=== PATIENT | female | born 1995 | race Caucasian/White ===

== ENCOUNTER 2017-08-14 22:45 | Emergency (ER) | payer SELFPAY ==
[2017-08-15 00:28] LABS: APPEARANCE,URINE CLEAR; BILIRUBIN,URINE NEGATIVE (NEGATIVE); GLUCOSE, URINE NEGATIVE (NEGATIVE); KETONES,URINE NEGATIVE (NEGATIVE); LEUKOCYTE ESTERASE,URINE TRACE (NEGATIVE); NITRITE,URINE NEGATIVE (NEGATIVE); PROTEIN,URINE NEGATIVE (NEGATIVE); URINE SPECIFIC GRAVITY 1.028; UROBILINOGEN,URINE NEGATIVE mg/dL (<2.0)
--- NOTE | 2017-08-15 00:48 | ER Document Report ---
ED GI/ - General Chief Complaint: Lower Abdominal Pain Stated Complaint: ABDOMINAL PAIN Time Seen by Provider: 08/14/17 23:43 Mode of Arrival: Ambulatory Information source: Patient TRAVEL OUTSIDE OF THE [place] IN LAST 30 DAYS: No - HPI Patient complains to provider of: Pelvic pain, , Vaginal bleeding Onset: Just prior to arrival Timing/Duration: Sudden Quality of pain: Achy, Cramping Severity at maximum: Mild Severity in ED: None Location: Pelvis Vaginal bleeding (Compared to normal period): Spotting Associated symptoms: None Exacerbated by: Denies Relieved by: Denies Similar symptoms previously: No Recently seen / treated by doctor: Yes Notes: 08/15/17 00:47 Patient is a 22-year-old female presenting to the emergency room today complaining of lower abdominal pain with vaginal spotting and possible anxiety attack, she reports being approximately 3 months , this is her first , she states was confirmed by a 4 or 5 home tests, and then by her primary care provider at [facility] where she had an transvaginal ultrasound 3 weeks ago that showed her to be 3-4 weeks , prior to today patient's last menstrual period was approximately 3 months ago and she has had no other bleeding or cramping since finding out she was - Related Data Allergies/Adverse Reactions: No Known Allergies Allergy (Unverified 08/14/17 22:57) Home Medications: Current Home Medications Ferrous Sulfate [Iron] 325 mg PO BID 08/15/17 [History] Multivitamin [Multivitamins] 1 each PO DAILY 08/15/17 [History] Past Medical History - General Information source: Patient - Social History Smoking Status: Never Smoker Family History: Reviewed & Not Pertinent Patient has suicidal ideation: No Patient has homicidal ideation: No Renal/ Medical History: Denies: Hx Peritoneal Dialysis Review of Systems - Review of Systems Constitutional: No symptoms reported EENT: No symptoms reported Cardiovascular: No symptoms reported Respiratory: No symptoms reported Gastrointestinal: No symptoms reported Genitourinary: No symptoms reported Female Genitourinary: See HPI Musculoskeletal: No symptoms reported Skin: No symptoms reported Hematologic/Lymphatic: No symptoms reported Neurological/Psychological: No symptoms reported -: Yes All other systems reviewed and negative Physical Exam - Vital signs Vitals: Temp Pulse Resp BP Pulse Ox 98.5 F 99 20 133/78 H 99 08/14/17 22:55 08/14/17 22:55 08/14/17 22:55 08/14/17 22:55 08/14/17 22:55 Interpretation: Normal - General General appearance: Appears well, Alert - HEENT Head: Normocephalic, Atraumatic Eyes: Normal Pupils: PERRL - Respiratory Respiratory status: No respiratory distress Chest status: Nontender Breath sounds: Normal Chest palpation: Normal - Cardiovascular Rhythm: Regular Heart sounds: Normal auscultation Murmur: No - Abdominal Inspection: Obese Distension: No distension Bowel sounds: Normal Tenderness: Tender - Suprapubic Organomegaly: No organomegaly - Back Back: Normal, Nontender - Extremities General upper extremity: Normal inspection, Nontender, Normal color, Normal ROM , Normal temperature General lower extremity: Normal inspection, Nontender, Normal color, Normal ROM , Normal temperature, Normal weight bearing. No: José Miguel's sign - Neurological Neuro grossly intact: Yes Cognition: Normal Orientation: AAOx4 Lemuel Coma Scale Eye Opening: Spontaneous Lemuel Coma Scale Verbal: Oriented Lemuel Coma Scale Motor: Obeys Commands Lemuel Coma Scale Total: 15 Speech: Normal Motor strength normal: LUE, RUE, LLE, RLE Sensory: Normal - Psychological Associated symptoms: Normal affect, Normal mood - Skin Skin Temperature: Warm Skin Moisture: Dry Skin Color: Normal Course - Re-evaluation Re-evalutation: 08/15/17 02:09 Patient serum test is negative, she was given a copy of this report for follow-up and advised to follow back up with her primary care provider who performed a recent ultrasound and told her that she was 3-4 weeks , she was advised to take Tylenol or Motrin as needed for pain, follow-up with her primary care provider or return if symptoms worsen, patient acknowledges understanding and agreement with this plan - Vital Signs Vital signs: Temp Pulse Resp BP Pulse Ox 98.5 F 99 20 133/78 H 99 08/14/17 22:55 08/14/17 22:55 08/14/17 22:55 08/14/17 22:55 08/14/17 22:55 - Laboratory Result Diagrams: 08/15/17 00:55 08/15/17 00:55 Laboratory results interpreted by me: 08/14/17 08/15/17 08/15/17 23:51 00:55 00:55 WBC 11.8 H Hgb 11.4 L MCV 71 L MCH 22.5 L MCHC 31.7 L RDW 16.6 H Sodium 145.3 H Chloride 108 H Ur Leukocyte Esterase TRACE H Discharge - Discharge Clinical Impression: Abdominal pain Qualifiers: Abdominal location: generalized Qualified Code(s): R10.84 - Generalized abdominal pain Condition: Stable Disposition: HOME, SELF-CARE Instructions: Abdominal Pain ([facility]) Additional Instructions: Follow up with your primary care provider in one to 2 days. Return to the emergency room immediately if symptoms worsen or any additional concerns.
[2017-08-15 01:07] LABS: ABSOLUTE BASOPHILS # (AUTO) 0.1 10^3/uL (0.0-0.2); ABSOLUTE EOSINOPHILS # (AUTO) 0.2 10^3/uL (0.0-0.6); ABSOLUTE LYMPHOCYTES (AUTO) 3.4 10^3/uL (0.5-4.7); ABSOLUTE MONOCYTES (AUTO) 0.7 10^3/uL (0.1-1.4); ABSOLUTE NEUT (AUTO) 7.4 10^3/uL (1.7-8.2); BASOPHILS % (AUTO) 0.8 % (0-2); EOSINOPHILS % (AUTO) 1.4 % (0-6); HEMOGLOBIN 11.4 g/dL (12.0-15.5); HGB HCT DIFFERENCE -1.8; LYMPHOCYTES % (AUTO) 28.7 % (13-45); MEAN CORPUSCULAR HEMOGLOBIN 22.5 pg (27.0-33.4); MEAN CORPUSCULAR HGB CONC 31.7 g/dL (32.0-36.0); MEAN CORPUSCULAR VOLUME 71 fl (80-97); MONOCYTES % (AUTO) 6.3 % (3-13); RED BLOOD COUNT 5.08 10^6/uL (3.72-5.28); RED CELL DISTRIBUTION WIDTH 16.6 % (11.5-14.0); SEGMENTED NEUTROPHILS % (AUTO) 62.8 % (42-78); WHITE BLOOD COUNT 11.8 10^3/uL (4.0-10.5)
[2017-08-15 01:49] LABS: ALANINE AMINOTRANSFERASE 22 U/L (9-52); ALBUMIN 4.6 g/dL (3.5-5.0); ALKALINE PHOSPHATASE 61 U/L (38-126); ANION GAP 14 (5-19); ASPARTATE AMINO TRANSFERASE 27 U/L (14-36); BILIRUBIN,DIRECT 0.3 mg/dL (0.0-0.4); BILIRUBIN,TOTAL 0.3 mg/dL (0.2-1.3); BLOOD UREA NITROGEN 16 mg/dL (7-20); CALCIUM 9.3 mg/dL (8.4-10.2); CARBON DIOXIDE 23 mmol/L (22-30); CHLORIDE 108 mmol/L (98-107); CREATININE RESULT 0.87 mg/dL (0.52-1.25); GLUCOSE 106 mg/dL (75-110); POTASSIUM 4.1 mmol/L (3.6-5.0); SODIUM 145.3 mmol/L (137-145); TOTAL PROTEIN 7.9 g/dL (6.3-8.2)
[2017-08-15 02:04] LABS: LIPASE 112.8 U/L (23-300)
[2017-08-15 02:12] VITALS: BP 128/82
== END 2017-08-15 02:11 | disposition home or self-care (01) ==
LOC: ER 22:45
DX: R10.84 Generalized abdominal pain (principal); R10.30 Lower abdominal pain, unspecified; R10.2 Pelvic and perineal pain; N93.9 Abnormal uterine and vaginal bleeding, unspecified; Z79.899 Other long term (current) drug therapy
CPT/HCPCS: 36415; 80053; 81001; 81025; 83690; 84702; 85025; 99284

== ENCOUNTER 2017-09-26 20:21 | Emergency (ER) | payer SELFPAY ==
[2017-09-26 20:33] VITALS: BP 127/75
[2017-09-26 21:37] LABS: ABSOLUTE BASOPHILS # (AUTO) 0.1 10^3/uL (0.0-0.2); ABSOLUTE EOSINOPHILS # (AUTO) 0.2 10^3/uL (0.0-0.6); ABSOLUTE LYMPHOCYTES (AUTO) 4.3 10^3/uL (0.5-4.7); ABSOLUTE NEUT (AUTO) 7.4 10^3/uL (1.7-8.2); BASOPHILS % (AUTO) 0.5 % (0-2); EOSINOPHILS % (AUTO) 1.6 % (0-6); HEMATOCRIT 35.1 % (36.0-47.0); HEMOGLOBIN 10.9 g/dL (12.0-15.5); HGB HCT DIFFERENCE -2.4; LYMPHOCYTES % (AUTO) 32.8 % (13-45); MEAN CORPUSCULAR HEMOGLOBIN 22.7 pg (27.0-33.4); MEAN CORPUSCULAR HGB CONC 31.1 g/dL (32.0-36.0); MEAN CORPUSCULAR VOLUME 73 fl (80-97); MONOCYTES % (AUTO) 7.7 % (3-13); RED BLOOD COUNT 4.82 10^6/uL (3.72-5.28); RED CELL DISTRIBUTION WIDTH 17.1 % (11.5-14.0); SEGMENTED NEUTROPHILS % (AUTO) 57.4 % (42-78)
[2017-09-26 21:52] LABS: APPEARANCE,URINE CLEAR; BILIRUBIN,URINE NEGATIVE (NEGATIVE); GLUCOSE, URINE NEGATIVE (NEGATIVE); KETONES,URINE NEGATIVE (NEGATIVE); LEUKOCYTE ESTERASE,URINE NEGATIVE (NEGATIVE); NITRITE,URINE NEGATIVE (NEGATIVE); PROTEIN,URINE NEGATIVE (NEGATIVE); UROBILINOGEN,URINE NEGATIVE mg/dL (<2.0)
[2017-09-26 21:55] LABS: ALANINE AMINOTRANSFERASE 22 U/L (9-52); ALBUMIN 4.3 g/dL (3.5-5.0); ALKALINE PHOSPHATASE 46 U/L (38-126); ANION GAP 14 (5-19); ASPARTATE AMINO TRANSFERASE 21 U/L (14-36); BILIRUBIN,DIRECT 0.2 mg/dL (0.0-0.4); BILIRUBIN,TOTAL 0.2 mg/dL (0.2-1.3); BLOOD UREA NITROGEN 16 mg/dL (7-20); CALCIUM 9.9 mg/dL (8.4-10.2); CARBON DIOXIDE 24 mmol/L (22-30); CHLORIDE 105 mmol/L (98-107); CREATININE RESULT 0.91 mg/dL (0.52-1.25); GLUCOSE 81 mg/dL (75-110); POTASSIUM 4.2 mmol/L (3.6-5.0); SODIUM 142.8 mmol/L (137-145); TOTAL PROTEIN 7.2 g/dL (6.3-8.2)
--- NOTE | 2017-09-27 | ER Document Report ---
ED General - General Chief Complaint: Abdominal Pain Stated Complaint: FEVER,ABDOMINAL PAIN,HEADACHE Time Seen by Provider: 09/26/17 22:40 Notes: Patient is a 22-year-old female presents with complaint of 1 week of some right upper quadrant abdominal pain with some nausea. No objective fevers at home. Some chills. No vomiting. Pain seems to be a little bit worse with eating. No diarrhea. No sore throat. No nasal congestion or cough. No history of abdominal surgeries. No dysuria. No other complaints at this time. TRAVEL OUTSIDE OF THE [place] IN LAST 30 DAYS: No - Related Data Allergies/Adverse Reactions: No Known Allergies Allergy (Verified 09/26/17 21:03) Past Medical History - Social History Smoking Status: Unknown if Ever Smoked Frequency of alcohol use: None Drug Abuse: None Family History: Reviewed & Not Pertinent Patient has suicidal ideation: No Patient has homicidal ideation: No Renal/ Medical History: Denies: Hx Peritoneal Dialysis Review of Systems - Review of Systems Notes: My Normal Review Basic REVIEW OF SYSTEMS: CONSTITUTIONAL : Denies fever, chills, or sweats. Denies recent illness. EENT: Denies eye, ear, throat, or mouth pain or symptoms. Denies nasal or sinus congestion. RESPIRATORY: Denies cough, cold, or chest congestion. Denies shortness of breath, difficulty breathing, or wheezing. GASTROINTESTINAL: Right upper quadrant abdominal pain with some nausea. GENITOURINARY: Denies difficulty urinating, painful urination, burning, frequency, or blood in urine. FEMALE GENITOURINARY: Denies vaginal bleeding, abnormal or irregular periods. MUSCULOSKELETAL: Denies neck or back pain or joint pain or swelling. SKIN: Denies rash or skin lesions. NEUROLOGICAL: Denies altered mental status or loss of consciousness. Denies headache. Denies weakness or paralysis or loss of use of either side. Denies problems with gait or speech. Denies sensory or motor loss. ALL OTHER SYSTEMS REVIEWED AND NEGATIVE. Physical Exam - Vital signs Vitals: Temp Pulse Resp BP Pulse Ox 98.6 F 92 18 127/75 H 99 09/26/17 20:32 09/26/17 20:32 09/26/17 20:32 09/26/17 20:32 09/26/17 20:32 - Notes Notes: General Appearance: Well nourished, alert, cooperative, no acute distress, no obvious discomfort. Well appearing. Vitals: reviewed, See vital signs table. Head: no swelling or tenderness to the head Eyes: PERRL, EOMI, Conjuctiva clear Mouth: No decreasd moisture Lungs: No wheezing, No rales, No rhonci, No accessory muscle use, good air exchange bilaterally. Heart: Normal rate, Regular rythm, No murmur, no rub Abdomen: Normal BS, soft, No rigidity, no reproducible abdominal tenderness palpation, No guarding, no rebound, Extremities: strength 5/5 in all extremities, good pulses in all extremities, no swelling or tenderness in the extremities, no edema. Skin: warm, dry, appropriate color, no rash Neuro: speech clear, oriented x 3, normal affect, responds appropriately to questions. Course - Re-evaluation Re-evalutation: 09/27/17 00:09 Patient is a setback this time. The nurse informed her that she was leaving does not want away for the ultrasound. I went and talked to them and informed her that with ultrasound cannot fully rule out stones. Told at this time I do not suspect infection or gallbladder however she could always get worse if she goes home without having ultrasound performed. She understands this. Her boyfriend is at bedside and says the only reason why she really came to days because he asked her to because at home she felt hot to them. Again the never checked her temp. She continues to deny any pain at this time or any vomiting. She says she was follow-up with her doctor will have an outpatient ultrasound performed. I informed her that she is more welcome to return to ER anytime for reevaluation or ultrasound here. I encouraged her return to ER immediately if she has recurrence of pain, vomiting, or any fevers. I informed her to avoid all fatty foods fried foods or acidic foods. I do not at all suspect appendicitis as the shunt has no pain to palpation of her abdomen. Dictation of this chart was performed using voice recognition software; therefore, there may be some unintended grammatical errors. - Vital Signs Vital signs: Temp Pulse Resp BP Pulse Ox 98.6 F 92 18 127/75 H 99 09/26/17 20:32 09/26/17 20:32 09/26/17 20:32 09/26/17 20:32 09/26/17 20:32 - Laboratory Result Diagrams: 09/26/17 21:27 09/26/17 21:27 Laboratory results interpreted by me: 09/26/17 21:27 WBC 13.0 H Hgb 10.9 L Hct 35.1 L MCV 73 L MCH 22.7 L MCHC 31.1 L RDW 17.1 H Discharge - Discharge Clinical Impression: Abdominal pain Qualifiers: Abdominal location: right upper quadrant Qualified Code(s): R10.11 - Right upper quadrant pain Condition: Good Disposition: HOME, SELF-CARE Additional Instructions: You eventually need an ultrasound of her gallbladder to make sure that her gallbladder does not have stones is not irritated. Your currently do not have a fever. Your white blood cell count is just minimally elevated. Your liver enzymes are normal. We respect her decision to want to leave for having ultrasound performed. As discussed with you. Please have a low threshold to return to the ER if you have fevers, severe pain, vomiting, or feel unwell. Please follow up with your doctor and have them arrange for an ultrasound of your gallbladder. Avoid fatty foods, spicy foods, and fried foods.
== END 2017-09-26 23:55 | disposition home or self-care (01) ==
LOC: ER 20:21
DX: R10.11 Right upper quadrant pain (principal); R50.9 Fever, unspecified; R51 Headache; R11.0 Nausea
CPT/HCPCS: 36415; 80053; 81001; 81025; 83690; 85025; 99284

== ENCOUNTER 2018-01-12 12:37 | Emergency (ER) | payer SELFPAY ==
--- NOTE | 2018-01-12 13:33 | ER Document Report ---
ED Medical Screen (RME) - General Chief Complaint: Abdominal Pain Stated Complaint: ABDOMINAL PAIN Time Seen by Provider: 01/12/18 13:23 Notes: 22-year-old female patient comes emergency room to get work note to justify her not showing up to work several times. She states she gets abdominal pain due to her ulcers. She states "I have stomach ulcers". When asked how these were diagnosed she said she was seen in [facility] for about 30 minutes and an ultrasound was done and they told her she had ulcers. This was when she was 19 years old. She has never had an upper GI study or endoscopy. She takes ibuprofen for the pain and it helps. She states Tums did not help. Sometimes the pain is in her chest. She states her last menstrual period was 12/07/2017, she is normally regular. When asked if she could be she responded "I hope not". She was seen here in August claiming to be 3 months , had a negative hCG at that time. I have greeted and performed a rapid initial assessment of this patient. A comprehensive ED assessment and evaluation of the patient, analysis of test results and completion of the medical decision making process will be conducted by additional ED providers. TRAVEL OUTSIDE OF THE [place] IN LAST 30 DAYS: No - Related Data Allergies/Adverse Reactions: No Known Allergies Allergy (Verified 01/12/18 12:38) Past Medical History Renal/ Medical History: Denies: Hx Peritoneal Dialysis Physical Exam - Vital signs Vitals: Temp Pulse Resp BP Pulse Ox 98.5 F 91 14 131/77 H 99 01/12/18 12:43 01/12/18 12:43 01/12/18 12:43 01/12/18 12:43 01/12/18 12:43 Course - Vital Signs Vital signs: Temp Pulse Resp BP Pulse Ox 98.5 F 91 14 131/77 H 99 01/12/18 12:43 01/12/18 12:43 01/12/18 12:43 01/12/18 12:43 01/12/18 12:43
--- NOTE | 2018-01-12 14:26 | ER Document Report ---
ED GI/ - General Chief Complaint: Abdominal Pain Stated Complaint: ABDOMINAL PAIN Time Seen by Provider: 01/12/18 13:23 Mode of Arrival: Ambulatory Information source: Patient Notes: 22-year-old female presented to ED for complaint of abdominal pain. She states she was told long time ago that she had ulcers has never had an endoscopy. She states that her bowels told her she had to come and get checked out if she was not going to be able to work due to pain in her abdomen. She denies any nausea or vomiting she states she just has lower abdominal pain. TRAVEL OUTSIDE OF THE [place] IN LAST 30 DAYS: No - HPI Patient complains to provider of: Abdominal pain - Lower abdominal pain Onset: Other - Several days Timing/Duration: Intermittent Quality of pain: Achy Severity at maximum: Moderate Severity in ED: Mild Pain Level: 2 Location: Pelvis Vaginal bleeding (Compared to normal period): None LMP: 12/08/2017 Associated symptoms: denies: Constipation, Diarrhea, Nausea, Urinary hesitancy, Urinary frequency, Urinary urgency, Vaginal discharge, Vomiting Exacerbated by: Movement, Walking Relieved by: Denies Similar symptoms previously: Yes Recently seen / treated by doctor: No - Related Data Allergies/Adverse Reactions: No Known Allergies Allergy (Verified 01/12/18 12:38) Past Medical History - General Information source: Patient - Social History Smoking Status: Never Smoker Cigarette use (# per day): No Chew tobacco use (# tins/day): No Smoking Education Provided: No Frequency of alcohol use: None Drug Abuse: None Lives with: Spouse/Significant other Family History: Reviewed & Not Pertinent Patient has suicidal ideation: No Patient has homicidal ideation: No - Medical History Medical History: Other - Anemia - Past Medical History Cardiac Medical History: Reports: None Pulmonary Medical History: Reports: None EENT Medical History: Reports: None Neurological Medical History: Reports: None Endocrine Medical History: Reports: None Renal/ Medical History: Reports: None Malignancy Medical History: Reports: None GI Medical History: Reports: Hx Gastritis, Hx Gastroesophageal Reflux Disease, Hx Ulcer Musculoskeltal Medical History: Reports None Skin Medical History: Reports None Psychiatric Medical History: Reports: Hx Depression Traumatic Medical History: Reports: None Infectious Medical History: Reports: None Past Surgical History: Reports: Hx Oral Surgery - [place] teeth Review of Systems - Review of Systems Constitutional: No symptoms reported EENT: No symptoms reported Cardiovascular: No symptoms reported Respiratory: No symptoms reported Gastrointestinal: Abdominal pain - Lower abdominal/pelvic pain Genitourinary: No symptoms reported Female Genitourinary: No symptoms reported Musculoskeletal: No symptoms reported Skin: No symptoms reported Hematologic/Lymphatic: No symptoms reported Neurological/Psychological: No symptoms reported -: Yes All other systems reviewed and negative Physical Exam - Vital signs Vitals: Temp Pulse Resp BP Pulse Ox 98.5 F 91 14 131/77 H 99 01/12/18 12:43 01/12/18 12:43 01/12/18 12:43 01/12/18 12:43 01/12/18 12:43 Interpretation: Normal - General General appearance: Appears well, Alert - HEENT Head: Normocephalic, Atraumatic Eyes: Normal Pupils: PERRL - Respiratory Respiratory status: No respiratory distress Chest status: Nontender Breath sounds: Normal Chest palpation: Normal - Cardiovascular Rhythm: Regular Heart sounds: Normal auscultation Murmur: No - Abdominal Inspection: Normal Distension: No distension Bowel sounds: Normal Tenderness: Tender - Lower abdominal/pelvic pain Organomegaly: No organomegaly - Back Back: Normal, Nontender - Extremities General upper extremity: Normal inspection, Nontender, Normal color, Normal ROM , Normal temperature General lower extremity: Normal inspection, Nontender, Normal color, Normal ROM , Normal temperature, Normal weight bearing. No: José Miguel's sign - Neurological Neuro grossly intact: Yes Cognition: Normal Orientation: AAOx4 Lemuel Coma Scale Eye Opening: Spontaneous Marion Coma Scale Verbal: Oriented Lemuel Coma Scale Motor: Obeys Commands Lemuel Coma Scale Total: 15 Speech: Normal Motor strength normal: LUE, RUE, LLE, RLE Sensory: Normal - Psychological Associated symptoms: Normal affect, Normal mood - Skin Skin Temperature: Warm Skin Moisture: Dry Skin Color: Normal Course - Re-evaluation Re-evalutation: 01/13/18 02:22 Patient was presented to ED for lower abdominal pain. No fever, nausea, vomiting or diarrhea. Patient has a history of ovarian cyst. Patient denied any vaginal discharge or vaginal pain. Patient states she came in because her boss that she had to get checked out and on for her to come back to work. There is no reasons for doing radiological test when she has no fever, no nausea , no vomiting, diarrhea, urinary frequency, urgency, or retention, and no vaginal discharge. Patient was instructed on use of ibuprofen and instructed to follow-up with her primary doctor and to take her lab work with her to her doctor. - Vital Signs Vital signs: Temp Pulse Resp BP Pulse Ox 98.1 F 87 16 117/80 100 01/12/18 15:30 01/12/18 15:30 01/12/18 15:30 01/12/18 15:30 01/12/18 15:30 - Laboratory Result Diagrams: 01/12/18 14:25 01/12/18 14:25 Laboratory results interpreted by me: 01/12/18 14:25 WBC 12.0 H Hgb 11.0 L Hct 35.2 L MCV 74 L MCH 23.1 L MCHC 31.3 L RDW 16.2 H Absolute Neutrophils 9.2 H Discharge - Discharge Clinical Impression: Abdominal pain Qualifiers: Abdominal location: lower abdomen, unspecified Qualified Code(s): R10.30 - Lower abdominal pain, unspecified Condition: Stable Disposition: HOME, SELF-CARE Instructions: Family Physicians / Practices Additional Instructions: ABDOMINAL PAIN: There are many causes of abdominal pain. Pain can mean a serious problem requiring surgery (such as appendicitis). It can also be an innocent problem that goes away on its own (such as a viral infection). Often, time must pass to determine the cause of pain. The physician does not feel that hospitalization is necessary, at present. Things may change within the next 24 hours. Call the doctor or come back for re- examination if any problems occur, such as: (1) Pain that becomes more severe, steady, or becomes concentrated in one specific area. Also, pain that is more severe with movement or coughing. (2) Vomiting that persists or becomes more frequent. (3) Blood in the vomitus, urine, or bowel movements. Blood in the stool may have a tarry or black appearance. (4) Shaking chills or fever greater than 100 degrees F. (5) The abdomen becomes more distended or swollen. (6) Bowel movements cease. (7) Failure to improve as expected. You will need to follow-up with an UNDERWRITER to determine if you have any ovarian cyst as the pain is not severe at this time. Ovarian cyst can cause some pain. The treatment for this is usually ibuprofen. NORMAL EXAM AND WORKUP: At this time, your examination and workup show no significant abnormality. No significant abnormal physical findings are noted. All laboratory, EKG, and imaging (x-ray, CT scans, ultrasound) studies that were ordered show no significant abnormality. Although your examination and all studies that were ordered showed no significant abnormal finding, there are no examinations and no studies that are 100% accurate. There is always the possibility that some abnormality could exist and not be detected with physical examination or within the limits and capabilities of laboratory and other studies. You should return or follow up as you were instructed on your visit today for further evaluation if your symptoms do not resolve. FOLLOW-UP CARE: If you have been referred to a physician for follow-up care, call the physician s office for an appointment as you were instructed or within the next two days. If you experience worsening or a significant change in your symptoms, notify the physician immediately or return to the Emergency Department at any time for re-evaluation. Forms: Elevated Blood Pressure, Return to Work
[2018-01-12 14:50] LABS: ABSOLUTE EOSINOPHILS # (AUTO) 0.1 10^3/uL (0.0-0.6); ABSOLUTE LYMPHOCYTES (AUTO) 2.1 10^3/uL (0.5-4.7); ABSOLUTE MONOCYTES (AUTO) 0.6 10^3/uL (0.1-1.4); ABSOLUTE NEUT (AUTO) 9.2 10^3/uL (1.7-8.2); BASOPHILS % (AUTO) 0.2 % (0-2); EOSINOPHILS % (AUTO) 0.7 % (0-6); HEMATOCRIT 35.2 % (36.0-47.0); LYMPHOCYTES % (AUTO) 17.3 % (13-45); MEAN CORPUSCULAR HEMOGLOBIN 23.1 pg (27.0-33.4); MEAN CORPUSCULAR HGB CONC 31.3 g/dL (32.0-36.0); MEAN CORPUSCULAR VOLUME 74 fl (80-97); MONOCYTES % (AUTO) 5.2 % (3-13); PLATELET COUNT 319 10^3/uL (150-450); RED BLOOD COUNT 4.76 10^6/uL (3.72-5.28); RED CELL DISTRIBUTION WIDTH 16.2 % (11.5-14.0); SEGMENTED NEUTROPHILS % (AUTO) 76.6 % (42-78); TOTAL CELLS COUNTED % (AUTO) 100 %
[2018-01-12 14:59] LABS: APPEARANCE,URINE CLEAR; BILIRUBIN,URINE NEGATIVE (NEGATIVE); COLOR,URINE YELLOW; GLUCOSE, URINE NEGATIVE (NEGATIVE); KETONES,URINE NEGATIVE (NEGATIVE); LEUKOCYTE ESTERASE,URINE NEGATIVE (NEGATIVE); NITRITE,URINE NEGATIVE (NEGATIVE); PROTEIN,URINE NEGATIVE (NEGATIVE); URINE SPECIFIC GRAVITY 1.027; UROBILINOGEN,URINE NEGATIVE mg/dL (<2.0)
[2018-01-12 15:14] LABS: ALANINE AMINOTRANSFERASE 25 U/L (9-52); ALBUMIN 4.5 g/dL (3.5-5.0); ALKALINE PHOSPHATASE 49 U/L (38-126); ANION GAP 13 (5-19); ASPARTATE AMINO TRANSFERASE 16 U/L (14-36); BILIRUBIN,DIRECT 0.1 mg/dL (0.0-0.4); BILIRUBIN,TOTAL 0.2 mg/dL (0.2-1.3); BLOOD UREA NITROGEN 14 mg/dL (7-20); CALCIUM 9.9 mg/dL (8.4-10.2); CARBON DIOXIDE 28 mmol/L (22-30); CHLORIDE 104 mmol/L (98-107); GLUCOSE 93 mg/dL (75-110); POTASSIUM 4.1 mmol/L (3.6-5.0); SODIUM 144.6 mmol/L (137-145); TOTAL PROTEIN 7.4 g/dL (6.3-8.2)
[2018-01-12 15:32] VITALS: BP 117/80
== END 2018-01-12 15:32 | disposition home or self-care (01) ==
LOC: ER 12:37
DX: R10.30 Lower abdominal pain, unspecified (principal)
CPT/HCPCS: 36415; 80053; 81001; 83690; 84703; 85025; 99284

== ENCOUNTER 2018-02-06 18:11 | Emergency (ER) | payer SELFPAY ==
[2018-02-06 19:53] LABS: APPEARANCE,URINE SLIGHTLY-CLOUDY; BILIRUBIN,URINE NEGATIVE (NEGATIVE); COLOR,URINE YELLOW; GLUCOSE, URINE NEGATIVE (NEGATIVE); KETONES,URINE NEGATIVE (NEGATIVE); LEUKOCYTE ESTERASE,URINE NEGATIVE (NEGATIVE); NITRITE,URINE NEGATIVE (NEGATIVE); PROTEIN,URINE NEGATIVE (NEGATIVE); URINE SPECIFIC GRAVITY 1.021; UROBILINOGEN,URINE NEGATIVE mg/dL (<2.0)
--- NOTE | 2018-02-06 20:20 | ER Document Report ---
ED GI/ - General Chief Complaint: Other Stated Complaint: CONSTIPATION Time Seen by Provider: 02/06/18 20:03 Mode of Arrival: Ambulatory Information source: Patient TRAVEL OUTSIDE OF THE [place] IN LAST 30 DAYS: No - HPI Patient complains to provider of: Other - i want to find out if i am having a miscarriage Notes: 02/06/18 20:14 Patient is here with complaints of wanting to find out if she is having a miscarriage. She states that her last normal menstrual period was sometime at the beginning of December, but she is not exactly sure when. She was actually seen at the [facility] today and had a positive test and had an ultrasound that showed no intrauterine . She was noted to have a left ovarian cyst. She was told to follow-up with her EVENTS INTERN in 2 weeks to determine if she is having a miscarriage or she just has an early , she states that she cannot wait that long so she came to the emergency department to find out. She denies any abdominal pain, vaginal bleeding, nausea , area, fever, dysuria or hematuria. She denies any chest pain or shortness of breath. She does complain of some mild constipation. She states that this is a chronic problem for her, she usually only has 1 bowel movement a week and it is typically hard. She had a bowel movement earlier today. She states that she has tried to take MiraLAX in the past, but does not like the way it tastes. No other complaints at this time. - Related Data Allergies/Adverse Reactions: No Known Allergies Allergy (Verified 02/06/18 18:15) Past Medical History - Social History Smoking Status: Unknown if Ever Smoked Family History: Reviewed & Not Pertinent Renal/ Medical History: Denies: Hx Peritoneal Dialysis GI Medical History: Reports: Hx Gastritis, Hx Gastroesophageal Reflux Disease, Hx Ulcer Psychiatric Medical History: Reports: Hx Depression Past Surgical History: Reports: Hx Oral Surgery - [place] teeth Review of Systems - Review of Systems -: Yes All other systems reviewed and negative Physical Exam - Vital signs Vitals: Temp Pulse Resp BP Pulse Ox 99.6 F 96 16 125/72 99 02/06/18 18:24 02/06/18 18:24 02/06/18 18:24 02/06/18 18:24 02/06/18 18:24 - Notes Notes: GENERAL: alert, cooperative, nontoxic, no distress. HEAD: normocephalic, atraumatic EYES: conjunctiva pink without discharge, no external redness or swelling. EARS: no external swelling, no external redness NOSE: atraumatic, no external swelling MOUTH/THROAT: mucous membranes moist and pink, posterior pharynx without erythema, swelling, exudate. No trismus or drooling. NECK: soft, supple, full range of motion, no meningismus. CHEST: no distress, lungs clear and equal throughout. No wheezing, rales, rhonchi. CARDIAC: regular rate and rhythm, no murmur, normal capillary refill, normal pulses. No peripheral edema noted. ABDOMEN: Soft, nontender. No rebound tenderness or guarding. No mass. BACK: full range of motion, no CVA tenderness. EXTREMITIES: full range of motion of all extremities. No redness, no swelling. NEURO: alert and oriented x 3, no focal deficits, full range of motion of all extremities. PYSCH: appropriate mood, affect. Patient is cooperative. SKIN: pink, warm, dry, no rash. Course - Re-evaluation Re-evalutation: 02/06/18 20:16 Patient is nontoxic appearing with stable vitals. Patient is here to find out she is having a miscarriage or not. Patient states that her last normal menstrual period was sometime at the beginning of December, but she is not sure exactly when. She was seen at the health department today and had an ultrasound showing no intrauterine with a left ovarian cyst. She is noted to have a positive urine test. She denies any abdominal pain or bleeding. She has a benign exam at this time. I explained that I cannot completely tell her today whether she is having a miscarriage or whether this is an early . At this point we will draw a quantitative hCG, she will then need to follow-up with her OB in the next few days to trend her hCG level to have a better idea of if it is rising or falling. She verbalized understanding of this. She does complain of some chronic constipation. I explained that she could try Metamucil, MiraLAX, increase exercise, drink lots of water and increase her fiber. She had a bowel movement today. This point the patient will be discharged home with instructions to follow-up with her OB/ DATA ANALYTICS CHIEF SCIENTIST at the next appointment. Follow-up sooner if she develops severe abdominal pain, high fever, persistent vomiting, or has any further concerns. Ectopic cannot completely be ruled out as we have not identified an intrauterine at this time, although at this point she has absolutely no pain or tenderness making it less likely. She will be instructed to return the emergency department should she develop any pelvic pain. The patient is noted to have elevated blood pressure during today's emergency department visit. The patient was informed of this finding. The patient was instructed that this may be related to pre-hypertension and requires further evaluation with a primary care provider. The patient has no hypertensive symptoms at this time. The patient's emergency department workup and current diagnosis were explained to the patient and or family. Follow-up instructions were provided. Medications if prescribed were discussed. Instructions for when to return to the emergency department including specific worrisome symptoms were discussed with the patient and/or family. - Vital Signs Vital signs: Temp Pulse Resp BP Pulse Ox 99.6 F 96 16 125/72 99 02/06/18 18:24 02/06/18 18:24 02/06/18 18:24 02/06/18 18:24 02/06/18 18:24 - Laboratory Laboratory results interpreted by me: 02/06/18 19:24 Urine Ascorbic Acid 40 H Urine HCG, Qual POSITIVE H Discharge - Discharge Clinical Impression: Qualifiers: Weeks of gestation: less than 8 weeks Qualified Code(s): Z3A.01 - Less than 8 weeks gestation of Constipation Qualifiers: Constipation type: unspecified constipation type Qualified Code(s): K59.00 - Constipation, unspecified Condition: Stable Disposition: HOME, SELF-CARE Instructions: ([facility]), Constipation ([facility]) Additional Instructions: Drink lots of fluids. Exercise. Increase the fiber in your diet. You may also try MiraLAX. Follow-up with your EVENTS INTERN at the next available appointment to have your hCG level redrawn to determine if it is going up or down. Return to the emergency department if you develop severe pain, heavy bleeding, persistent vomiting, or have any further concerns. Your blood pressure was elevated during today's visit. Have this rechecked with your doctor. Forms: Elevated Blood Pressure, Smoking Cessation Education Referrals: ARMANDO SOLIS MD [ACTIVE STAFF] - Follow up as needed
[2018-02-06 20:48] VITALS: BP 131/75
== END 2018-02-06 20:47 | disposition home or self-care (01) ==
LOC: ER 18:11
DX: O99.611 Diseases of the digestive system complicating pregnancy, first trimester (principal); K59.00 Constipation, unspecified; O26.891 Other specified pregnancy related conditions, first trimester; R03.0 Elevated blood-pressure reading, without diagnosis of hypertension; O34.81 Maternal care for other abnormalities of pelvic organs, first trimester; N83.202 Unspecified ovarian cyst, left side; Z3A.01 Less than 8 weeks gestation of pregnancy
CPT/HCPCS: 36415; 81001; 81025; 84702; 99283

== ENCOUNTER → 2018-02-06 | Outpatient (CLI) | payer SELFPAY ==
--- NOTE | 2018-02-06 16:04 | RADIOLOGY REPORT (SQ) ---
EXAM DESCRIPTION: U/S OB TRANSVAGINAL W/O DOP COMPLETED DATE/TIME: 02/06/2018 3:30 pm REASON FOR STUDY: Z34.81 ENCOUNTER FOR SUPRVSN OF NORMAL , FIRST TRIMESTER Z34.81 ENCOUNTE R FOR SUPRVSN OF NORMAL , FIRST TRIM COMPARISON: None. TECHNIQUE: Transvaginal static and realtime grayscale images acquired of the pelvis. Additional carlitos cted spectral and color Doppler images recorded. All images stored on PACs. bHCG: Not available. CLINICAL DATES: SUDHEER: 09/07/2018. EGA: 9 weeks 4 day LIMITATIONS: None. FINDINGS: FETUS: No IUP visualized at this time. UTERUS: 7.2 x 6.3 x 4.1 cm. CERVICAL LENGTH: 2.6 cm. Closed. RIGHT ADNEXA: The right ovary measures 3.1 x 2.5 x 2.0 cm. No adnexal free fluid. No adnexal masses. LEFT ADNEXA: The left ovary measure 4.4 x 3.6 x 3.5 cm. A septated 2.7 x 3.2 x 2.0 cm ovarian cyst. Normal vascular flow. No adnexal free fluid. FREE FLUID: None. OTHER: The endometrial cavity measures 15.2 cm in AP diameter. IMPRESSION: 1. No intrauterine visualized. Clinical Correlation and follow-up examination for re-evaluation. 2 A septated left ovarian cyst. TECHNICAL DOCUMENTATION: JOB ID: [id number] [employer]- All Rights Reserved rev-02/17 Reading location - IP/workstation name: [email or web address]
== END ==
LOC: WI 14:55
PROVIDERS: ATTEND Nurse Practitioner Women's Health
DX: Z34.81 Encounter for supervision of other normal pregnancy, first trimester (principal)
CPT/HCPCS: 76817

== ENCOUNTER → 2018-02-14 | Outpatient (CLI) | payer MEDICAID | LOC: LAB 12:51 | PROVIDERS: ATTEND Nurse Practitioner Women's Health | DX: O36.80X0 Pregnancy with inconclusive fetal viability, not applicable or unspecified (principal); Z3A.00 Weeks of gestation of pregnancy not specified | CPT/HCPCS: 36415; 84702 ==

== ENCOUNTER → 2018-02-16 | Outpatient (CLI) | payer MEDICAID | LOC: OCH 07:26 | PROVIDERS: ATTEND Nurse Practitioner Women's Health | DX: O36.80X0 Pregnancy with inconclusive fetal viability, not applicable or unspecified (principal) | CPT/HCPCS: 36415; 84702 ==

== ENCOUNTER → 2018-02-20 | Outpatient (CLI) | payer MEDICAID ==
--- NOTE | 2018-02-20 16:31 | RADIOLOGY REPORT (SQ) ---
EXAM DESCRIPTION: U/S [id number] TRNABD 1GES W/ODOP COMPLETED DATE/TIME: 02/20/2018 2:48 pm REASON FOR STUDY: ENCOUNTER FOR SUPERVISION OF OTHER NORMAL . FIRST TRIMESTER Z34.81 ENCOU NTER FOR SUPRVSN OF NORMAL , FIRST TRIM COMPARISON: None. TECHNIQUE: Transvaginal static and realtime grayscale images acquired of the pelvis. Additional carlitos cted spectral and color Doppler images recorded. All images stored on PACs. bHC,842 LIMITATIONS: None. FINDINGS: UTERUS: No masses. No anomalies. GESTATIONAL SAC: Yes. YOLK SAC: Yes. POLE: No. RIGHT ADNEXA: Ovary not identified. No adnexal free fluid. No adnexal masses. LEFT ADNEXA: Normal ovary with normal vascular flow. No adnexal free fluid. Corpus Luteum measuring 3.0 cm. FREE FLUID: None. OTHER: No other significant finding. IMPRESSION: POSSIBLE EARLY INTRAUTERINE . BHCG LEVEL APPROPRIATE FOR ENDOMETRIAL FINDINGS. CONSIDER F/U BHCG AND/OR ULTRASOUND FOR VERIFICATION AND TO EXCLUDE ECTOPIC . Trimester of : First - 0 to 13 weeks. COMMENT: Gestational sac diameter 1.4 cm corresponds to 6 weeks gestation. TECHNICAL DOCUMENTATION: JOB ID: [id number] [employer]- All Rights Reserved Reading location - IP/workstation name: [email or web address]
== END ==
LOC: RAD 13:35
PROVIDERS: ATTEND Nurse Practitioner Women's Health
DX: Z34.81 Encounter for supervision of other normal pregnancy, first trimester (principal)
CPT/HCPCS: 76801

== ENCOUNTER → 2018-02-28 | Outpatient (CLI) | payer SELFPAY ==
--- NOTE | 2018-02-28 16:23 | RADIOLOGY REPORT (SQ) ---
EXAM DESCRIPTION: U/S [id number] TRNABD 1GES W/ODOP COMPLETED DATE/TIME: 02/28/2018 3:55 pm REASON FOR STUDY: Z34.01 ENCNTR FOR SUPRVSN OF NORMAL FIRST PREG, FIRST TRIMESTER Z34.01 ENCNTR FOR SUPRVSN OF NORMAL FIRST PREG, FIRST TRIMES COMPARISON: 02/20/2018 TECHNIQUE: Transabdominal static and realtime grayscale images acquired of the pelvis. Additional se lected spectral and color Doppler images recorded. All images stored on PACs. bHCG: Not drawn CLINICAL DATES: 10 weeks 2 days LIMITATIONS: None. FINDINGS: ULTRASOUND EGA: 6 weeks 1 day ULTRASOUND SUDHEER: 10/23/2018 CRL: 4 mm FHR: No heart motion seen. SUBCHORIONIC BLEED: No SIZE OF BLEED: Not applicable. UTERUS: No masses or anomalies. 10.6 x 5.2 x 5.5 cm. CERVICAL LENGTH: 3.4 cm. Closed. RIGHT ADNEXA: Normal ovary with normal vascular flow. 2.9 x 4.3 x 2.9 cm. No adnexal free fluid. No adnexal masses. LEFT ADNEXA: Corpus luteum 2.6 x 2.3 x 2.7 cm. The ovary measures 4.2 x 4.1 x 3.6 cm. Normal vascul ar flow. No adnexal free fluid. No adnexal masses. FREE FLUID: None. OTHER: No other significant finding. IMPRESSION: [place]-rump length of 4 mm suggested gestation 6 weeks 1 day. However, no heart mo tion was seen. Follow-up as clinically indicated. Trimester of : First - 0 to 13 weeks. TECHNICAL DOCUMENTATION: JOB ID: [id number] [employer]- All Rights Reserved rev Reading location - IP/workstation name: [email or web address]
== END ==
LOC: RAD 14:51
PROVIDERS: ATTEND Nurse Practitioner Women's Health
DX: Z34.01 Encounter for supervision of normal first pregnancy, first trimester (principal)
CPT/HCPCS: 76801

== ENCOUNTER 2018-03-20 19:04 | Emergency (ER) | payer MEDICAID ==
--- NOTE | 2018-03-20 21:12 | ER Document Report ---
ED Medical Screen (RME) - General Chief Complaint: OB Problem (<20wks) Stated Complaint: COMPLAINT Time Seen by Provider: 03/20/18 21:07 Mode of Arrival: Ambulatory Information source: Patient Notes: Patient reports that she is 7-8 weeks . Patient denies any medical complaints. No abdominal pain or vaginal bleeding. Patient states that she has had 3 ultrasounds done and was seen at [facility] today. Patient was expecting an ultrasound and did not get one done at the office so she left without being seen. TRAVEL OUTSIDE OF THE [place] IN LAST 30 DAYS: No - Related Data Allergies/Adverse Reactions: No Known Allergies Allergy (Verified 02/06/18 18:15) Past Medical History - General Information source: Patient - Social History Cigarette use (# per day): No Frequency of alcohol use: None Drug Abuse: None Occupation: unemployed Lives with: Family Renal/ Medical History: Denies: Hx Peritoneal Dialysis GI Medical History: Reports: Hx Gastritis, Hx Gastroesophageal Reflux Disease, Hx Ulcer Psychiatric Medical History: Reports: Hx Depression Past Surgical History: Reports: Hx Oral Surgery - [place] teeth - Immunizations Immunizations up to date: Yes Hx Diphtheria, Pertussis, Tetanus Vaccination: Yes Review of Systems - Review of Systems Constitutional: No symptoms reported EENT: No symptoms reported Cardiovascular: No symptoms reported Respiratory: No symptoms reported Gastrointestinal: No symptoms reported Genitourinary: No symptoms reported Female Genitourinary: No symptoms reported Musculoskeletal: No symptoms reported Skin: No symptoms reported Hematologic/Lymphatic: No symptoms reported Neurological/Psychological: No symptoms reported Physical Exam - Vital signs Vitals: Temp Pulse Resp BP Pulse Ox 100.2 F 107 H 18 130/72 H 99 03/20/18 19:18 03/20/18 19:18 03/20/18 19:18 03/20/18 19:18 03/20/18 19:18 - Notes Notes: Abdomen: Soft, non-tender. Course - Vital Signs Vital signs: Temp Pulse Resp BP Pulse Ox 100.2 F 107 H 18 130/72 H 99 03/20/18 19:18 03/20/18 19:18 03/20/18 19:18 03/20/18 19:18 03/20/18 19:18 Doctor's Discharge - Discharge Referrals: CHEKO SALAS NP [Primary Care Provider] - Follow up as needed
[2018-03-20 21:33] LABS: ABSOLUTE EOSINOPHILS # (AUTO) 0.2 10^3/uL (0.0-0.6); ABSOLUTE LYMPHOCYTES (AUTO) 3.7 10^3/uL (0.5-4.7); ABSOLUTE MONOCYTES (AUTO) 0.8 10^3/uL (0.1-1.4); ABSOLUTE NEUT (AUTO) 6.9 10^3/uL (1.7-8.2); BASOPHILS % (AUTO) 0.4 % (0-2); EOSINOPHILS % (AUTO) 1.9 % (0-6); HEMATOCRIT 34.5 % (36.0-47.0); HEMOGLOBIN 11.2 g/dL (12.0-15.5); LYMPHOCYTES % (AUTO) 31.4 % (13-45); MEAN CORPUSCULAR HEMOGLOBIN 24.7 pg (27.0-33.4); MEAN CORPUSCULAR HGB CONC 32.6 g/dL (32.0-36.0); MEAN CORPUSCULAR VOLUME 76 fl (80-97); MONOCYTES % (AUTO) 6.7 % (3-13); PLATELET COUNT 328 10^3/uL (150-450); RED BLOOD COUNT 4.55 10^6/uL (3.72-5.28); SEGMENTED NEUTROPHILS % (AUTO) 59.6 % (42-78); TOTAL CELLS COUNTED % (AUTO) 100 %; WHITE BLOOD COUNT 11.6 10^3/uL (4.0-10.5)
[2018-03-20 21:48] LABS: ALANINE AMINOTRANSFERASE 24 U/L (9-52); ALBUMIN 4.5 g/dL (3.5-5.0); ALKALINE PHOSPHATASE 36 U/L (38-126); ANION GAP 13 (5-19); ASPARTATE AMINO TRANSFERASE 17 U/L (14-36); BILIRUBIN,DIRECT 0.2 mg/dL (0.0-0.4); BILIRUBIN,TOTAL 0.3 mg/dL (0.2-1.3); BLOOD UREA NITROGEN 15 mg/dL (7-20); CALCIUM 9.7 mg/dL (8.4-10.2); CARBON DIOXIDE 24 mmol/L (22-30); CHLORIDE 105 mmol/L (98-107); GLUCOSE 94 mg/dL (75-110); POTASSIUM 4.5 mmol/L (3.6-5.0); SODIUM 141.9 mmol/L (137-145); TOTAL PROTEIN 7.8 g/dL (6.3-8.2)
--- NOTE | 2018-03-20 21:54 | ER Document Report ---
ED GI/ - General Chief Complaint: OB Problem (<20wks) Stated Complaint: COMPLAINT Time Seen by Provider: 03/20/18 21:07 Mode of Arrival: Ambulatory Information source: Patient TRAVEL OUTSIDE OF THE [place] IN LAST 30 DAYS: No - HPI Patient complains to provider of: Other - i want to know if i am having a miscarriage Notes: 03/20/18 21:52 Patient is here with complaints of wanting to know if she is having a miscarriage. Her last normal menstrual period was at the beginning of December. She has been seen here and at the [facility] several times for her . She was seen 1 month ago and had a hormone level of 8842. She was seen on the at the [facility] and had an ultrasound at that time. Clinically she should have been 10 weeks , she was only measuring 6 weeks and there was no heart rate. She tells me that on her last appointment, they did an ultrasound was none able to visualize a but she does not think that they had the probe in far enough and could actually see anything and does not believe that she was having a miscarriage. She went to see her CUSTOMER PROGRAM MANAGER today, she states that she was put in a room that did not have an ultrasound machine and was waiting too long so she ended up leaving without being seen. She is here requesting to get a referral to a new CUSTOMER PROGRAM MANAGER. She denies any abdominal pain, vaginal bleeding, nausea, vomiting, diarrhea. She denies any chest pain or shortness of breath. She has no other complaints at this time. - Related Data Allergies/Adverse Reactions: No Known Allergies Allergy (Verified 02/06/18 18:15) Past Medical History - General Information source: Patient - Social History Smoking Status: Never Smoker Cigarette use (# per day): No Chew tobacco use (# tins/day): No Frequency of alcohol use: None Drug Abuse: None Occupation: unemployed Lives with: Family Family History: Reviewed & Not Pertinent Patient has suicidal ideation: No Patient has homicidal ideation: No Renal/ Medical History: Denies: Hx Peritoneal Dialysis GI Medical History: Reports: Hx Gastritis, Hx Gastroesophageal Reflux Disease, Hx Ulcer Psychiatric Medical History: Reports: Hx Depression Past Surgical History: Reports: Hx Oral Surgery - [place] teeth - Immunizations Immunizations up to date: Yes Hx Diphtheria, Pertussis, Tetanus Vaccination: Yes Review of Systems - Review of Systems -: Yes All other systems reviewed and negative Physical Exam - Vital signs Vitals: Temp Pulse Resp BP Pulse Ox 100.2 F 107 H 18 130/72 H 99 03/20/18 19:18 03/20/18 19:18 03/20/18 19:18 03/20/18 19:18 03/20/18 19:18 - Notes Notes: GENERAL: alert, cooperative, nontoxic, no distress. HEAD: normocephalic, atraumatic EYES: conjunctiva pink without discharge, no external redness or swelling. EARS: no external swelling, no external redness NOSE: atraumatic, no external swelling MOUTH/THROAT: mucous membranes moist and pink, posterior pharynx without erythema, swelling, exudate. No trismus or drooling. NECK: soft, supple, full range of motion, no meningismus. CHEST: no distress, lungs clear and equal throughout. No wheezing, rales, rhonchi. CARDIAC: regular rate and rhythm, no murmur, normal capillary refill, normal pulses. No peripheral edema noted. ABDOMEN: Soft, nontender. No rebound tenderness, guarding. BACK: full range of motion, no CVA tenderness. EXTREMITIES: full range of motion of all extremities. No redness, no swelling. NEURO: alert and oriented x 3, no focal deficits, full range of motion of all extremities. PYSCH: appropriate mood, affect. Patient is cooperative. SKIN: pink, warm, dry, no rash. Course - Re-evaluation Re-evalutation: 03/20/18 22:18 Patient is nontoxic-appearing with stable vitals. The patient is here with complaints of wanting to know if she is having a miscarriage. This is her second . [facility] Her last quantitative hCG that we had in our system was 8842, this was 1 month ago. On 02 March, she had a quantitative hCG of 45,000 according to her lab results that she has with her. She had an ultrasound done on 28 February that showed that she was measuring only 6 weeks with no heart tones although she should be 10 weeks based on her dates. She tells me she was seen in the office a few days ago and had an ultrasound that did not show any intrauterine , she did not believe that they had the ultrasound probe fully inserted and that that is why they did not see anything. She went back to the office today, she was placed in a room that did not have an ultrasound machine and she was upset and ended up leaving without being seen. She denies any abdominal pain, fever, vaginal bleeding. She has no abdominal tenderness on exam. Today her quantitative hCG is just over 13,000. Since it has decreased from 45,000-13,000 over the last 2 weeks, it is likely that the truly did not see an intrauterine and that she is in the process of having a miscarriage. This point the patient will be given a referral to CUSTOMER PROGRAM MANAGER that is logistics operations director for us today. She is instructed to follow-up with an CUSTOMER PROGRAM MANAGER at the next available appointment to continue having her hCG level checked to to determine if it continues to drop. She should follow-up if she develops any severe abdominal pain, high fever, persistent vomiting, severe bleeding, or has any further concerns. The patient is noted to have elevated blood pressure during today's emergency department visit. The patient was informed of this finding. The patient was instructed that this may be related to pre-hypertension and requires further evaluation with a primary care provider. The patient has no hypertensive symptoms at this time. The patient's emergency department workup and current diagnosis were explained to the patient and or family. Follow-up instructions were provided. Medications if prescribed were discussed. Instructions for when to return to the emergency department including specific worrisome symptoms were discussed with the patient and/or family. - Vital Signs Vital signs: Temp Pulse Resp BP Pulse Ox 100.2 F 107 H 18 130/72 H 99 03/20/18 19:18 03/20/18 19:18 03/20/18 19:18 03/20/18 19:18 03/20/18 19:18 - Laboratory Result Diagrams: 03/20/18 21:15 03/20/18 21:15 Laboratory results interpreted by me: 03/20/18 03/20/18 21:15 21:15 WBC 11.6 H Hgb 11.2 L Hct 34.5 L MCV 76 L MCH 24.7 L RDW 16.0 H Alkaline Phosphatase 36 L Beta HCG, Quant 33088.00 H Discharge - Discharge Clinical Impression: Miscarriage Condition: Stable Disposition: HOME, SELF-CARE Instructions: Miscarriage ([facility]) Additional Instructions: Follow-up with your CUSTOMER PROGRAM MANAGER at the next available appointment. Follow-up sooner for worsening pain, high fever, severe abdominal pain, persistent vomiting, or for any further concerns. Your blood pressure was elevated during today's visit. Have this rechecked with your doctor. Forms: Elevated Blood Pressure, Smoking Cessation Education Referrals: CHEKO SALAS NP [NO LOCAL MD] - Follow up as needed ARMANDO SOLIS MD [ACTIVE STAFF] - Follow up as needed
[2018-03-20 22:35] VITALS: BP 117/79
== END 2018-03-20 22:34 | disposition home or self-care (01) ==
LOC: ER 19:04
DX: O03.9 Complete or unspecified spontaneous abortion without complication (principal); R03.0 Elevated blood-pressure reading, without diagnosis of hypertension
CPT/HCPCS: 36415; 80053; 84702; 85025; 99284

== ENCOUNTER 2019-11-27 10:13 | Emergency (ER) | payer SELFPAY ==
[2019-11-27 10:24] VITALS: BP 140/84
--- NOTE | 2019-11-27 10:46 | ER Document Report ---
ED Medical Screen (RME) - General Chief Complaint: Vaginal Bleeding Stated Complaint: VAGINAL BLEEDING Time Seen by Provider: 11/27/19 10:42 Notes: HPI: 24-year-old female who is a G5, presenting for continued vaginal bleeding over the last 3 weeks. Patient states she had a positive test 6 weeks [facility]. Does not know how far along she was. States she began having cramping shortly after that and 3 weeks ago began having vaginal bleeding. States she is using 5 or 6 pads a day. No shortness of breath no dizziness with standing but has a history of anemia and was concerned and wanted to get her blood counts checked. Does not have [facility] follow-up and has not been back to the health department for reevaluation I have greeted and performed a rapid initial assessment of this patient. A comprehensive ED assessment and evaluation of the patient, analysis of test results and completion of the medical decision making process will be conducted by additional ED providers PHYSICAL EXAMINATION: GENERAL: Well-appearing, well-nourished and in no acute distress. HEAD: Atraumatic, normocephalic. EYES: sclera anicteric, conjunctiva are normal. ENT: Moist mucous membranes. NECK: Normal range of motion LUNGS: Normal work of breathing HEART: 2+ radial pulses bilaterally ABD: Morbidly obese, limited by positioning for exam in triage. Very mild tenderness over the suprapubic region on palpation EXTREMITIES: no pitting or edema. No cyanosis. NEUROLOGICAL: No focal neurological deficits. Moves all extremities spontaneously and on command. PSYCH: Normal mood, normal affect. SKIN: Warm, Dry, normal turgor, no rashes or lesions noted. TRAVEL OUTSIDE OF THE [place] IN LAST 30 DAYS: No - Related Data Allergies/Adverse Reactions: No Known Allergies Allergy (Verified 03/25/18 07:13) Past Medical History - Social History Frequency of alcohol use: None Drug Abuse: None Renal/ Medical History: Denies: Hx Peritoneal Dialysis GI Medical History: Reports: Hx Gastritis, Hx Gastroesophageal Reflux Disease, Hx Ulcer Psychiatric Medical History: Reports: Hx Depression Past Surgical History: Reports: Hx Oral Surgery - [place] teeth - Immunizations Immunizations up to date: Yes Hx Diphtheria, Pertussis, Tetanus Vaccination: Yes Physical Exam - Vital signs Vitals: Temp Pulse Resp BP Pulse Ox 98.6 F 91 18 140/84 H 99 11/27/19 10:23 11/27/19 10:23 11/27/19 10:23 11/27/19 10:23 11/27/19 10:23 Course - Vital Signs Vital signs: Temp Pulse Resp BP Pulse Ox 98.6 F 91 18 140/84 H 99 11/27/19 10:23 11/27/19 10:23 11/27/19 10:23 11/27/19 10:23 11/27/19 10:23
[2019-11-27 11:07] LABS: ABSOLUTE EOSINOPHILS # (AUTO) 0.1 10^3/uL (0.0-0.6); ABSOLUTE MONOCYTES (AUTO) 0.5 10^3/uL (0.1-1.4); ABSOLUTE NEUT (AUTO) 4.2 10^3/uL (1.7-8.2); BASOPHILS % (AUTO) 0.2 % (0-2); EOSINOPHILS % (AUTO) 1.4 % (0-6); HEMATOCRIT 35.2 % (36.0-47.0); HEMOGLOBIN 11.4 g/dL (12.0-15.5); LYMPHOCYTES % (AUTO) 29.4 % (13-45); MEAN CORPUSCULAR HEMOGLOBIN 24.5 pg (27.0-33.4); MEAN CORPUSCULAR HGB CONC 32.3 g/dL (32.0-36.0); MEAN CORPUSCULAR VOLUME 76 fl (80-97); MONOCYTES % (AUTO) 7.6 % (3-13); PLATELET COUNT 316 10^3/uL (150-450); RED BLOOD COUNT 4.64 10^6/uL (3.72-5.28); RED CELL DISTRIBUTION WIDTH 15.2 % (11.5-14.0); SEGMENTED NEUTROPHILS % (AUTO) 61.4 % (42-78); TOTAL CELLS COUNTED % (AUTO) 100 %; WHITE BLOOD COUNT 6.8 10^3/uL (4.0-10.5)
[2019-11-27 11:32] LABS: ALBUMIN 4.3 g/dL (3.5-5.0); ALKALINE PHOSPHATASE 49 U/L (38-126); ANION GAP 9 (5-19); ASPARTATE AMINO TRANSFERASE 18 U/L (14-36); BILIRUBIN,TOTAL 0.3 mg/dL (0.2-1.3); BLOOD UREA NITROGEN 11 mg/dL (7-20); CALCIUM 9.1 mg/dL (8.4-10.2); CARBON DIOXIDE 24 mmol/L (22-30); CHLORIDE 108 mmol/L (98-107); GLUCOSE 95 mg/dL (75-110); POTASSIUM 3.9 mmol/L (3.6-5.0); TOTAL PROTEIN 7.3 g/dL (6.3-8.2)
--- NOTE | 2019-11-27 12:21 | ER Document Report ---
ED General - General Chief Complaint: Vaginal Bleeding Stated Complaint: VAGINAL BLEEDING Time Seen by Provider: 11/27/19 10:42 Primary Care Provider: ELPIDIO CHOUDHURY MD [ACTIVE STAFF] - Follow up in 3-5 days ELIDA GREENE MD [ACTIVE STAFF] - Follow up in 3-5 days TRAVEL OUTSIDE OF THE [place] IN LAST 30 DAYS: No - HPI Notes: 24-year-old female to the emergency department with complaints of 3 weeks of vaginal bleeding. She states that about 6 weeks ago she had a miscarriage. 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 She states that usually she bleeds for about a week but this time she has been bleeding for longer and she got concerned. She has been taking iron daily. She denies any pelvic pain or fevers or chills. She denies any chest pain or shortness of breath. She has not ever seen a [facility] for her multiple miscarriages. - Related Data Allergies/Adverse Reactions: No Known Allergies Allergy (Verified 03/25/18 07:13) Past Medical History - General Information source: Patient Last Menstrual Period: 09/05/2019 - Social History Smoking Status: Never Smoker Frequency of alcohol use: None Drug Abuse: None Family History: Reviewed & Not Pertinent Patient has suicidal ideation: No Patient has homicidal ideation: No Renal/ Medical History: Denies: Hx Peritoneal Dialysis GI Medical History: Reports: Hx Gastritis, Hx Gastroesophageal Reflux Disease, Hx Ulcer Psychiatric Medical History: Reports: Hx Depression Past Surgical History: Reports: Hx Oral Surgery - [place] teeth - Immunizations Immunizations up to date: Yes Hx Diphtheria, Pertussis, Tetanus Vaccination: Yes Review of Systems - Review of Systems Constitutional: denies: Chills, Fever EENT: No symptoms reported Cardiovascular: denies: Chest pain, Palpitations, Heart racing, Dizziness, Lightheaded, Edema Respiratory: denies: Cough, Short of breath Gastrointestinal: denies: Abdominal pain, Diarrhea, Nausea, Vomiting Genitourinary: No symptoms reported Female Genitourinary: See HPI, Heavy/abnormal periods, Vaginal bleeding. denies: Skin: No symptoms reported Hematologic/Lymphatic: No symptoms reported Neurological/Psychological: No symptoms reported -: Yes All other systems reviewed and negative Physical Exam - Vital signs Vitals: Temp Pulse Resp BP Pulse Ox 98.6 F 91 18 140/84 H 99 11/27/19 10:23 11/27/19 10:23 11/27/19 10:11/27/19 10:23 11/27/19 10:23 Interpretation: Normal - General General appearance: Appears well, Alert In distress: None - HEENT Head: Normocephalic, Atraumatic Eyes: Normal Pupils: PERRL - Respiratory Respiratory status: No respiratory distress Chest status: Nontender Breath sounds: Normal. No: Rales, Rhonchi, Wheezing Chest palpation: Normal - Cardiovascular Rhythm: Regular Heart sounds: Normal auscultation Murmur: No - Abdominal Inspection: Normal Distension: No distension Bowel sounds: Normal Tenderness: Nontender. 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 H&H is stable. Total beta quant is 0. She has no abdominal pain, no leukocytosis, no fever. Do not think patient needs further imaging or labs today. We will have her follow-up with [facility]. She is to return if she has worsening bleeding, pelvic pain, fevers, nausea vomiting. She agrees with the plan. - Vital Signs Vital signs: Temp Pulse Resp BP Pulse Ox 98.6 F 91 18 140/84 H 99 11/27/19 10:23 11/27/19 10:23 11/27/19 10:23 11/27/19 10:23 11/27/19 10:23 - Laboratory Result Diagrams: 11/27/19 10:55 11/27/19 10:55 Laboratory results interpreted by me: 11/27/19 11/27/19 10:55 10:55 Hgb 11.4 L Hct 35.2 L MCV 76 L MCH 24.5 L RDW 15.2 H Chloride 108 H Discharge - Discharge Clinical Impression: Vaginal bleeding Condition: Stable Disposition: HOME, SELF-CARE Instructions: Vaginal Bleeding ([facility]) Additional Instructions: Follow-up with [facility] and PCP. RETURN IF WORSENING SYMPTOMS SUCH PELVIC PAIN, FEVERS, VOMITING, WORSENING BLEEDING. CONTINUE THE IRON AT HOME. Referrals: ELPIDIO CHOUDHURY MD [ACTIVE STAFF] - Follow up in 3-5 days ELIDA GREENE MD [ACTIVE STAFF] - Follow up in 3-5 days
== END 2019-11-27 12:32 | disposition home or self-care (01) ==
LOC: ER 10:13
DX: N93.8 Other specified abnormal uterine and vaginal bleeding (principal)
CPT/HCPCS: 36415; 80053; 84702; 85025; 86900; 86901; 99284

== ENCOUNTER 2020-03-18 10:42 | Emergency (ER) | payer MEDICAID ==
--- NOTE | 2020-03-18 11:27 | ER Document Report ---
ED Medical Screen (RME) - General Chief Complaint: Head Injury Stated Complaint: FALL/HEAD/WRIST PAIN Time Seen by Provider: 03/18/20 11:23 Notes: HPI: 24-year-old female presenting to the emergency department complaining of head injury that occurred yesterday. Patient was getting the mail slipped and fell backwards striking her head on the ground no loss of consciousness. States she felt some blood in the hair. Still with headache today. Also complaining of neck pain. Also complaining of right wrist pain PHYSICAL EXAMINATION: No visible wound noted on the scalp. She is tender across the vertex of the scalp. Mild tenderness over the cervical spine and paraspinous musculature on palpation. She is alert and oriented answering all questions. She has some soft tissue swelling to the radial side of the right wrist with tenderness on palpation in this region I have greeted and performed a rapid initial assessment of this patient. A comprehensive ED assessment and evaluation of the patient, analysis of test results and completion of medical decision making process will be conducted by an additional ED providers. TRAVEL OUTSIDE OF THE [place] IN LAST 30 DAYS: No - Related Data Allergies/Adverse Reactions: No Known Allergies Allergy (Verified 03/25/18 07:13) Past Medical History Renal/ Medical History: Denies: Hx Peritoneal Dialysis GI Medical History: Reports: Hx Gastritis, Hx Gastroesophageal Reflux Disease, Hx Ulcer Psychiatric Medical History: Reports: Hx Depression Past Surgical History: Reports: Hx Oral Surgery - [place] teeth - Immunizations Immunizations up to date: Yes Hx Diphtheria, Pertussis, Tetanus Vaccination: Yes Physical Exam - Vital signs Vitals: Temp Pulse Resp BP Pulse Ox 98.8 F 74 16 141/68 H 99 03/18/20 11:03/18/20 11:03/18/20 11:03/18/20 11:04 03/18/20 11:04 Course - Vital Signs Vital signs: Temp Pulse Resp BP Pulse Ox 98.8 F 74 16 141/68 H 99 03/18/20 11:04 03/18/20 11:04 03/18/20 11:04 03/18/20 11:04 03/18/20 11:04
--- NOTE | 2020-03-18 12:33 | RADIOLOGY REPORT (SQ) ---
EXAM DESCRIPTION: CT CERVICAL SPINE WITHOUT IMAGES COMPLETED DATE/TIME: 03/18/2020 12:22 pm REASON FOR STUDY: fall COMPARISON: None. TECHNIQUE: Axial images acquired through the cervical spine without intravenous contrast. Images re viewed with lung, soft tissue and bone windows. Reconstructed coronal and sagittal MPR images review ed. Images stored on PACS. All CT scanners at this facility use dose modulation, iterative reconstruction, and/or weight based d osing when appropriate to reduce radiation dose to as low as reasonably achievable (ALARA). [facility]: Dose Right [facility]: CareDose [facility]: Dose Right [facility]: Teradose 4D [facility]: MyNextRun RADIATION DOSE: CT Rad equipment meets quality standard of care and radiation dose reduction techniq ues were employed. CTDIvol: 25.8 mGy. DLP: 525 mGy-cm. mGy. LIMITATIONS: None. FINDINGS: ALIGNMENT: Anatomic. MINERALIZATION: Normal. VERTEBRAL BODIES: No fractures or dislocation. DISCS: No significant disc disease. FACETS, LATERAL MASSES, POSTERIOR ELEMENTS: No fractures. No dislocation. No acute findings. HARDWARE: None in the spine. VISUALIZED RIBS: No fractures. LUNG APICES AND SOFT TISSUES: No significant or acute findings. OTHER: No other significant finding. IMPRESSION: NO ACUTE OR SIGNIFICANT FINDINGS IN THE CERVICAL SPINE. TECHNICAL DOCUMENTATION: JOB ID: [id number] Quality ID # [id number]: Final reports with documentation of one or more dose reduction techniques (e.g., Au tomated exposure control, adjustment of the mA and/or kV according to patient size, use of iterative reconstruction technique) 2010 [employer]- All Rights Reserved Reading location - IP/workstation name: [email or web address]
--- NOTE | 2020-03-18 12:37 | RADIOLOGY REPORT (SQ) ---
EXAM DESCRIPTION: CT HEAD WITHOUT IMAGES COMPLETED DATE/TIME: 03/18/2020 12:22 pm REASON FOR STUDY: fall head inj COMPARISON: None. TECHNIQUE: Axial images acquired through the brain without intravenous contrast. Images reviewed wi th bone, brain and subdural windows. Additional sagittal and coronal reconstructions were generated. Images stored on PACS. All CT scanners at this facility use dose modulation, iterative reconstruction, and/or weight based d osing when appropriate to reduce radiation dose to as low as reasonably achievable (ALARA). [facility]: Dose Right [facility]: CareDose [facility]: Dose Right [facility]: Teradose 4D [facility]: [employer] RADIATION DOSE: CT Rad equipment meets quality standard of care and radiation dose reduction techniq ues were employed. CTDIvol: 53.2 mGy. DLP: 1044 mGy-cm. mGy. LIMITATIONS: None. FINDINGS: VENTRICLES: Normal size and contour. CEREBRUM: No masses. No hemorrhage. No midline shift. No evidence for acute infarction. Normal gra y/white matter differentiation. No areas of low density in the white matter. CEREBELLUM: No masses. No hemorrhage. No alteration of density. No evidence for acute infarction. EXTRAAXIAL SPACES: No fluid collections. No masses. ORBITS AND GLOBE: No intra- or extraconal masses. Normal contour of globe without masses. CALVARIUM: No fracture. PARANASAL SINUSES: No fluid or mucosal thickening. SOFT TISSUES: No mass or hematoma. OTHER: No other significant finding. IMPRESSION: NORMAL BRAIN CT WITHOUT CONTRAST. EVIDENCE OF ACUTE STROKE: NO. COMMENT: Quality ID # [id number]: Final reports with documentation of one or more dose reduction techniques (e.g., Automated exposure control, adjustment of the mA and/or kV according to patient size, use of iterative reconstruction technique) TECHNICAL DOCUMENTATION: JOB ID: [id number] 2010 [employer]- All Rights Reserved Reading location - IP/workstation name: [email or web address]
--- NOTE | 2020-03-18 12:39 | RADIOLOGY REPORT (SQ) ---
EXAM DESCRIPTION: WRIST RIGHT 3 VIEWS IMAGES COMPLETED DATE/TIME: 03/18/2020 12:29 pm REASON FOR STUDY: fall COMPARISON: None. NUMBER OF VIEWS: Four views. TECHNIQUE: AP, lateral, oblique, and scaphoid radiographic images acquired of the right wrist. LIMITATIONS: None. FINDINGS: MINERALIZATION: Normal. BONES: No acute fracture or dislocation. No worrisome bone lesions. Normal alignment. SOFT TISSUES: No soft tissue swelling. No foreign body. OTHER: No other significant finding. IMPRESSION: NEGATIVE STUDY OF THE RIGHT WRIST. NO RADIOGRAPHIC EVIDENCE OF ACUTE INJURY. TECHNICAL DOCUMENTATION: JOB ID: [id number] 2010 [employer]- All Rights Reserved Reading location - IP/workstation name: [email or web address]
[2020-03-18] MEDS ORDERED: NAPROXEN 250 MG TABLET PO ONE (13:17)
--- NOTE | 2020-03-18 13:20 | ER Document Report ---
HPI - HPI Time Seen by Provider: 03/18/20 11:23 Pain Level: 4 Notes: CHIEF COMPLAINT: Head injury, wrist injury HPI: Please see RME note for initial history and physical ROS: See HPI - all other systems were reviewed and are otherwise negative Constitutional: no fever Eyes: no drainage, no blurred vision ENT: no runny nose, no sore throat Cardiovascular: no chest pain Resp: no SOB, no cough GI: no vomiting, no diarrhea, no abdominal pain : no dysuria Integumentary: no rash Allergy: no hives Musculoskeletal: Positive extremity pain or swelling, positive neck pain Neurological: no numbness/tingling, no weakness, positive headache MEDICATIONS: I agree with the patient medications as charted by the RN. ALLERGIES: I agree with the allergies as charted by the RN. PAST MEDICAL HISTORY/PAST SURGICAL HISTORY: Reviewed and agree as charted by RN. SOCIAL HISTORY: Reviewed and agree as charted by RN. FAMILY HISTORY: No significant familial comorbid conditions directly related to patient complaint EXAM: Reviewed vital signs as charted by RN. CONSTITUTIONAL: Alert and oriented and responds appropriately to questions. Well-appearing; well-nourished HEAD: Normocephalic; atraumatic, mild tenderness over the vertex of the scalp without visible bruising EYES: PERRL; Conjunctivae clear, sclerae non-icteric ENT: normal nose; no rhinorrhea; moist mucous membranes; pharynx without lesions noted, no uvula edema or deviation, no tonsillar hypertrophy, phonation normal NECK: Supple without meningismus; mild tenderness across the cervical spine and cervical paraspinous musculature on palpation; no cervical lymphadenopathy, no masses CARD: RRR; no murmurs, no clicks, no rubs, no gallops; symmetric distal pulses RESP: Normal chest excursion without splinting or tachypnea; breath sounds clear and equal bilaterally; no wheezes, no rhonchi, no rales, pulse oximetry ABD/GI: Normal bowel sounds; non-distended; soft, non-tender, no rebound, no guarding; no palpable organomegaly or masses. BACK: The back appears normal and is non-tender to palpation, there is no CVA tenderness EXT: Normal ROM in all joints; there is tenderness with slight soft tissue swelling to the right distal radial region. Radial and ulnar pulses are present in the right wrist. Patient able to flex and extend the fingers of the right hand as well as abduct the thumb although she has increased discomfort on abduction of the thumb. No elbow discomfort on palpation or range of motion; no cyanosis, no effusions, no edema SKIN: Normal color for age and race; warm; dry; good turgor; no acute lesions noted NEURO: Moves all extremities equally; Motor and sensory function intact PSYCH: The patient's mood and manner are appropriate. Grooming and personal hygiene are appropriate. MDM: 24-year-old female with head injury, wrist injury. CT imaging of the head and cervical spine did not reveal evidence of fracture or bleed. Wrist x-ray does not reveal evidence of fracture. Will place patient in a cock-up splint for comfort, follow-up orthopedics - NEURO Neurology: REPORTS: Headache - REPRODUCTIVE Reproductive: DENIES: : - MUSCULOSKELETAL Musculoskeletal: REPORTS: Extremity pain Past Medical History - Social History Smoking Status: Never Smoker Frequency of alcohol use: None Drug Abuse: None Family History: Reviewed & Not Pertinent Patient has homicidal ideation: No Renal/ Medical History: Denies: Hx Peritoneal Dialysis GI Medical History: Reports: Hx Gastritis, Hx Gastroesophageal Reflux Disease, Hx Ulcer Psychiatric Medical History: Reports: Hx Depression Past Surgical History: Reports: Hx Oral Surgery - [place] teeth - Immunizations Immunizations up to date: Yes Hx Diphtheria, Pertussis, Tetanus Vaccination: Yes Vertical Provider Document - INFECTION CONTROL TRAVEL OUTSIDE OF THE [place] IN LAST 30 DAYS: No Course - Vital Signs Vital signs: Temp Pulse Resp BP Pulse Ox 98.8 F 74 16 141/68 H 99 03/18/20 11:22 03/18/20 11:04 03/18/20 11:04 03/18/20 11:04 03/18/20 11:04 Discharge - Discharge Clinical Impression: Fall Qualifiers: Encounter type: initial encounter Qualified Code(s): W19.XXXA - Unspecified fall, initial encounter Head injury due to trauma Qualifiers: Encounter type: initial encounter Qualified Code(s): S09.90XA - Unspecified injury of head, initial encounter Right wrist sprain Qualifiers: Encounter type: initial encounter Qualified Code(s): S63.501A - Unspecified sprain of right wrist, initial encounter Condition: Stable Disposition: HOME, SELF-CARE Instructions: Wrist Sprain ([facility]), Head Injury Precautions ([facility]) Additional Instructions: The CT imaging of your head and neck did not show evidence of fracture or bleeding. The x-ray of your wrist did not show evidence of a fracture, use the wrist splint for comfort for the next 5 to 7 days. Ice to the wrist and scalp to help with swelling and bruising 2-[address] ice directly on the skin. Take naproxen consistently for pain. Follow-up with a primary care provider or orthopedic physician for further evaluation and treatment call for appointment Prescriptions: Naproxen 500 mg PO BID PRN #14 tablet PRN Reason: Referrals: CAMILLE LUA MD [ACTIVE STAFF] - Follow up as needed
[2020-03-18 13:39] VITALS: BP 120/77
== END 2020-03-18 13:41 | disposition home or self-care (01) ==
LOC: ER 10:42
DX: S09.90XA Unspecified injury of head, initial encounter (principal); S63.501A Unspecified sprain of right wrist, initial encounter; M54.2 Cervicalgia; W19.XXXA Unspecified fall, initial encounter
CPT/HCPCS: 99284; 73110; 70450; 72125; J3490